=== PATIENT | female | born 1945 | race Caucasian/White ===

== ENCOUNTER 2023-09-17 12:07 | Inpatient (IN) | payer MEDICARE, MEDICAID ==
[~2023-09-17] VITALS: Ht 162.6 cm; Wt 65.8 kg
[~2023-09-17 12:07] MED LIST: ACET325T55 PO; AMLO-314 PO; BISA10SU60 RC; DIPH25CA83 IMVAC; DOCU100C41 PO; FAMO20TA8 PO; FLUO-167 PO; HALO5SYR3 IVP; IBUP-2417 PO; LAMO200T2 PO; LIDO1ADH67 TOP; LORA-269 PO; LORA2SYR IV; LOSA100T58 PO; MAGN296S89 PO; MAGN400O6 PO; MELA1TAB28 PO; NA P133E4 RC; ONDA-103 PO; OXYB-58 PO; OXYC-658 PO; OXYC10TA57 PO; POLY17PO10 PO; PREVCR VG; SACC250C PO; TIOT18CA3 INH
[2023-09-17 15:18] VITALS: BP 116/54; PULSE 66; RESP 18; TEMP 98.3; O2SAT 98
[2023-09-17 16:00] VITALS: RESP 18; O2SAT 100
[2023-09-17] MEDS ORDERED: mag hydrox/Alum hydrox/simeth 30ml oral suspension PO PRN (17:20)
[2023-09-17] MEDS ORDERED: acetaminophen 325mg tablet PO PRN (17:20)
[2023-09-17] MEDS ORDERED: HYDROmorphone inj. 0.5 MG/0.5 ML DISP.SYRIN IV PRN (17:20)
[2023-09-17] MEDS ORDERED: ondansetron/PF 4mg/2ml inj IV PRN (17:20)
[2023-09-17] MEDS ORDERED: magnesium hydroxide 30ml (MOM) UD suspension PO PRN (17:20)
[2023-09-17] MEDS ORDERED: IPRA3AMP9 INH (17:48)
[2023-09-17] MEDS ORDERED: OXYC-658 PO (17:48)
[2023-09-17] MEDS ORDERED: GABA300C PO (17:48)
[2023-09-17] MEDS ORDERED: AMLO2.5T2 PO (17:48)
[2023-09-17] MEDS ORDERED: ASPI-1468 PO (17:48)
[2023-09-17] MEDS ORDERED: MULT-1074 PO (17:48)
[2023-09-17] MEDS ORDERED: FAMO20TA8 PO (17:48)
[2023-09-17] MEDS ORDERED: NAPR-1170 PO (17:48)
[2023-09-17] MEDS ORDERED: HYDR-3964 PO (17:48)
[2023-09-17] MEDS ORDERED: SENN8.6T19 PO (17:48)
[2023-09-17] MEDS ORDERED: FLUO-1 PO (17:48)
[2023-09-17] MEDS ORDERED: LAMO200T2 PO (17:48)
[2023-09-17] MEDS ORDERED: OXYB5TAB21 PO (17:48)
[2023-09-17] MEDS ORDERED: PREVCR VG (17:48)
[2023-09-17] MEDS ORDERED: MELA3TAB39 PO (17:48)
[2023-09-17] MEDS ORDERED: ipratropium/albuterol 3ml nebule NEB PRN (17:55)
[2023-09-17 18:00] VITALS: BP 129/44; PULSE 74; RESP 18; TEMP 98.2; O2SAT 100
[2023-09-17] MEDS: ringers solution, lacted 1,000 ML IV SCH (18:05)
[2023-09-17] MEDS: vancomycin/NS 1 GM ADD-VANTAGE 250 ML X 1 DOSE IV ONE (18:30)
[2023-09-17] MEDS ORDERED: ipratropium/albuterol 3ml nebule NEB SCH (19:00)
[2023-09-17] MEDS ORDERED: albuterol 60 PUFF/8GM Inhaler (90mcg/1 puff) IH PRN (19:28)
[2023-09-17] MEDS: docusate sod 100mg capsule PO SCH (19:43)
[2023-09-17] MEDS: gabapentin 300mg capsule PO SCH (19:44)
[2023-09-17 19:50] VITALS: PULSE 73; RESP 16; O2SAT 98
[2023-09-17 19:51] LABS: BASOPHILS % (AUTO) 0.1 % (0-1); EOSINOPHILS # (AUTO) 0.1 X10'3 (0-0.9); EOSINOPHILS % (AUTO) 0.9 % (0-6); HEMATOCRIT 27.7 % (35.0-45.0); HEMOGLOBIN 9.2 g/dl (12.0-16.0); LYMPHOCYTES # (AUTO) 0.4 X10'3 (1.1-4.8); LYMPHOCYTES % (AUTO) 3.3 % (21-51); MEAN CORPUSCULAR HEMOGLOBIN 28.7 PG (27.0-31.0); MEAN CORPUSCULAR HGB CONC 33.4 g/dL (33.0-36.5); MEAN CORPUSCULAR VOLUME 86.1 FL (78-98); MEAN PLATELET VOLUME 6.7 FL (7.4-10.4); MONOCYTES # (AUTO) 0.4 X10'3 (0-0.9); MONOCYTES % (AUTO) 3.8 % (2-12); NEUTROPHILS # (AUTO) 10.8 X10'3 (1.8-7.7); NEUTROPHILS % (AUTO) 91.9 % (42-75); PLATELET COUNT 408 X10'3 (140-440); RED BLOOD COUNT 3.22 X10'6 (4.20-5.60); WHITE BLOOD COUNT 11.7 X10'3 (4.5-11.0)
[2023-09-17 20:00] VITALS: RESP 18; O2SAT 100
[2023-09-17 20:04] LABS: ALANINE AMINOTRANSFERASE 35 U/L (12-78); ALBUMIN 2.9 G/DL (3.4-5.0); ALBUMIN/GLOBULIN RATIO 0.7 (1.1-1.5); ALKALINE PHOSPHATASE 310 IU/L (46-116); ANION GAP 8 (8-16); ASPARTATE AMINO TRANSFERASE 23 U/L (10-37); BILIRUBIN,TOTAL 0.4 MG/DL (0.1-1.0); BLOOD UREA NITROGEN 13 MG/DL (7-18); BUN/CREATININE RATIO 22.4 (10.0-20.0); CALCIUM 8.6 MG/DL (8.5-10.1); CHLORIDE 91 MMOL/L (99-107); CREATININE 0.58 MG/DL (0.40-0.90); GLUCOSE 111 MG/DL (70-104); POTASSIUM 4.3 MMOL/L (3.5-5.1); SODIUM 123 MMOL/L (135-145); TOTAL CARBON DIOXIDE 24.5 MMOL/L (24-32); TOTAL PROTEIN 7.1 G/DL (6.4-8.2); eCRCL 70 ML/MIN; eGFR > 90 ML/MIN
[2023-09-17] MEDS: albuterol 60 PUFF/8GM Inhaler (90mcg/1 puff) IH SCH (23:00)
[2023-09-18] VITALS (11 sets, daily range): BP systolic 119–140; BP diastolic 50–76; PULSE 56–81; RESP 18–20; TEMP 98.1–98.4; O2SAT 94–99
[2023-09-18 05:23] LABS: BASOPHILS % (AUTO) 0.2 % (0-1); EOSINOPHILS # (AUTO) 0.2 X10'3 (0-0.9); EOSINOPHILS % (AUTO) 1.6 % (0-6); HEMATOCRIT 28.9 % (35.0-45.0); HEMOGLOBIN 9.7 g/dl (12.0-16.0); LYMPHOCYTES # (AUTO) 0.6 X10'3 (1.1-4.8); LYMPHOCYTES % (AUTO) 6.2 % (21-51); MEAN CORPUSCULAR HEMOGLOBIN 28.7 PG (27.0-31.0); MEAN CORPUSCULAR HGB CONC 33.6 g/dL (33.0-36.5); MEAN CORPUSCULAR VOLUME 85.5 FL (78-98); MEAN PLATELET VOLUME 6.7 FL (7.4-10.4); MONOCYTES # (AUTO) 0.3 X10'3 (0-0.9); NEUTROPHILS # (AUTO) 8.6 X10'3 (1.8-7.7); PLATELET COUNT 443 X10'3 (140-440); RED BLOOD COUNT 3.38 X10'6 (4.20-5.60); RED CELL DISTRIBUTION WIDTH 13.8 % (11.5-14.5); WHITE BLOOD COUNT 9.7 X10'3 (4.5-11.0)
[2023-09-18 05:37] LABS: ALANINE AMINOTRANSFERASE 35 U/L (12-78); ALBUMIN 2.9 G/DL (3.4-5.0); ALBUMIN/GLOBULIN RATIO 0.7 (1.1-1.5); ALKALINE PHOSPHATASE 318 IU/L (46-116); ANION GAP 8 (8-16); ASPARTATE AMINO TRANSFERASE 37 U/L (10-37); BILIRUBIN,TOTAL 0.6 MG/DL (0.1-1.0); BLOOD UREA NITROGEN 8 MG/DL (7-18); CHLORIDE 91 MMOL/L (99-107); GLUCOSE 105 MG/DL (70-104); MAGNESIUM 1.8 MG/DL (1.5-2.4); PHOSPHORUS 3.1 MG/DL (2.3-4.5); SODIUM 124 MMOL/L (135-145); TOTAL CARBON DIOXIDE 24.6 MMOL/L (24-32); TOTAL PROTEIN 7.3 G/DL (6.4-8.2); eCRCL 81 ML/MIN; eGFR > 90 ML/MIN
[2023-09-18] MEDS: MULTIVIT-MIN/FERROUS GLUCONATE 9 MG/15 ML LIQUID PO SCH (07:34)
[2023-09-18] MEDS: lamoTRIgine 100mg tablet PO SCH (07:34)
[2023-09-18] MEDS: FLUoxetine 20mg capsule PO SCH (07:35)
[2023-09-18] MEDS: amLODIPine 5mg tablet PO SCH (07:36)
[2023-09-18] MEDS: HYDROcodone/acetaminophen 5mg/325mg tablet PO PRN (07:45)
[2023-09-18] MEDS ORDERED: cefazolin 2gm/D5W 100mL 100 ML IV SCH (08:00)
[2023-09-18] MEDS ORDERED: CEFAZOLIN 2 GM injection IM SCH (08:00)
[2023-09-18] MEDS: vancomycin/NS 1 GM ADD-VANTAGE 250 ML IV SCH (08:49)
[2023-09-18] MEDS: morphine 2 MG/ML inj. syringe IV PRN (08:51)
[2023-09-18] MEDS: HYDROcodone/acetaminophen 10/325mg tab PO PRN (12:12)
[2023-09-18] MEDS: ringers solution, lacted 1,000 ML IV SCH (12:13)
[2023-09-18 17:25] LABS: C-REACTIVE PROTEIN 11.73 MG/DL (0.0-0.5)
[2023-09-19] VITALS (10 sets, daily range): BP systolic 104–157; BP diastolic 50–75; PULSE 76–82; RESP 12–19; TEMP 97.5–98.2; O2SAT 93–99
[2023-09-19] MEDS: ceFAZolin 1000mg inj ONE ×3 (07:27→10:23)
[2023-09-19] MEDS: VANCOMYCIN LEVEL IV ONE (07:30)
[2023-09-19] MEDS ORDERED: fentaNYL/PF 50MCG/1 ML 2ML syringe ONE (08:15)
[2023-09-19] MEDS ORDERED: midazolam 1 mg/ML 2ml injection ONE (08:15)
[2023-09-19] MEDS ORDERED: sevoflurane 250ml liquid IH ONE (08:24)
[2023-09-19 08:29] LABS: BASOPHILS % (AUTO) 0.5 % (0-1); EOSINOPHILS # (AUTO) 0.4 X10'3 (0-0.9); EOSINOPHILS % (AUTO) 5.8 % (0-6); HEMATOCRIT 29.4 % (35.0-45.0); HEMOGLOBIN 9.7 g/dl (12.0-16.0); LYMPHOCYTES # (AUTO) 1.1 X10'3 (1.1-4.8); LYMPHOCYTES % (AUTO) 17.6 % (21-51); MEAN CORPUSCULAR HEMOGLOBIN 28.2 PG (27.0-31.0); MEAN CORPUSCULAR VOLUME 85.5 FL (78-98); MEAN PLATELET VOLUME 6.7 FL (7.4-10.4); MONOCYTES # (AUTO) 0.5 X10'3 (0-0.9); MONOCYTES % (AUTO) 8.2 % (2-12); NEUTROPHILS # (AUTO) 4.4 X10'3 (1.8-7.7); NEUTROPHILS % (AUTO) 67.9 % (42-75); PLATELET COUNT 432 X10'3 (140-440); RED BLOOD COUNT 3.44 X10'6 (4.20-5.60); WHITE BLOOD COUNT 6.4 X10'3 (4.5-11.0)
[2023-09-19] MEDS ORDERED: hydrALAZINE 20mg/ml inj. IV PRN (08:35)
[2023-09-19] MEDS ORDERED: meperidine/PF 25mg/ml syringe IV PRN (08:35)
[2023-09-19] MEDS: ringers solution, lacted 1,000 ML IV SCH (08:35)
[2023-09-19] MEDS ORDERED: ondansetron/PF 4mg/2ml inj IV PRN (08:35)
[2023-09-19] MEDS ORDERED: morphine 2 MG/ML inj. syringe IV PRN (08:35)
[2023-09-19] MEDS ORDERED: morphine 4 MG/ML inj SYRINge IV PRN (08:35)
[2023-09-19] MEDS ORDERED: proCHLORperazine 10 MG/2 ml inj IV PRN (08:35)
[2023-09-19] MEDS ORDERED: HYDROmorphone/PF 0.2 MG/ML SYRINGE IV PRN ×2 (08:35)
[2023-09-19] MEDS ORDERED: labetalol 20mg/4ml (5mg/ml) syringe IV PRN (08:35)
[2023-09-19 08:36] LABS: ALBUMIN 2.6 G/DL (3.4-5.0); ANION GAP 10 (8-16); BLOOD UREA NITROGEN 7 MG/DL (7-18); BUN/CREATININE RATIO 14.6 (10.0-20.0); CALCIUM 8.7 MG/DL (8.5-10.1); CHLORIDE 95 MMOL/L (99-107); CREATININE 0.48 MG/DL (0.40-0.90); GLUCOSE 94 MG/DL (70-104); SODIUM 130 MMOL/L (135-145); TOTAL CARBON DIOXIDE 25.3 MMOL/L (24-32); eCRCL 85 ML/MIN; eGFR > 90 ML/MIN
[2023-09-19 08:39] LABS: ALANINE AMINOTRANSFERASE 29 U/L (12-78); ALBUMIN 2.6 G/DL (3.4-5.0); ALBUMIN/GLOBULIN RATIO 0.6 (1.1-1.5); ALKALINE PHOSPHATASE 256 IU/L (46-116); ANION GAP 10 (8-16); ASPARTATE AMINO TRANSFERASE 13 U/L (10-37); BILIRUBIN,TOTAL 0.3 MG/DL (0.1-1.0); BLOOD UREA NITROGEN 7 MG/DL (7-18); BUN/CREATININE RATIO 15.6 (10.0-20.0); CALCIUM 8.8 MG/DL (8.5-10.1); CHLORIDE 95 MMOL/L (99-107); CREATININE 0.45 MG/DL (0.40-0.90); GLUCOSE 95 MG/DL (70-104); MAGNESIUM 1.7 MG/DL (1.5-2.4); PHOSPHORUS 3.1 MG/DL (2.3-4.5); POTASSIUM 3.9 MMOL/L (3.5-5.1); SODIUM 130 MMOL/L (135-145); TOTAL CARBON DIOXIDE 25.2 MMOL/L (24-32); TOTAL PROTEIN 6.8 G/DL (6.4-8.2); VANCOMYCIN,TROUGH 9.7 ug/mL (10.0-20.0); eCRCL 90 ML/MIN; eGFR > 90 ML/MIN
[2023-09-19] MEDS: HYDROmorphone inj. 0.5 MG/0.5 ML DISP.SYRIN IV PRN (09:01)
[2023-09-19 09:05] LABS: D-DIMER 7.22 MG/L FEU (0-0.50)
[2023-09-19] MEDS ORDERED: rocuronium 10mg/ml inj IV ONE (09:07)
[2023-09-19] MEDS ORDERED: ondansetron/PF 4mg/2ml inj ONE (09:07)
[2023-09-19] MEDS ORDERED: LIDOcaine 2% (20mg/ml) 5ml vial ONE (09:07)
[2023-09-19] MEDS ORDERED: ePHEDrine 50MG/ML INJ. ONE (09:07)
[2023-09-19] MEDS ORDERED: dexamethasone sod phosphate 4mg/ml inj. ONE (09:07)
[2023-09-19] MEDS ORDERED: propofol inj 20 ML IV ONE (09:07)
[2023-09-19] MEDS ORDERED: 0.9 % SODIUM CHLORIDE 10 ML VIAL ONE (09:07)
[2023-09-19] MEDS: tobramycin sulfate 1.2gm vial ONE (09:29)
[2023-09-19] MEDS: vancomycin 1,000mg inj ONE (09:30)
[2023-09-19] MEDS: ceFAZolin 1000mg inj IR ONE (09:47)
[2023-09-19] MEDS ORDERED: neostigmine methylsulfate 1 MG/ML 10ml vial ONE (10:53)
[2023-09-19] MEDS ORDERED: glycopyrrolate 0.2mg/ml inj ONE (10:53)
[2023-09-19] MEDS ORDERED: morphine 10mg/ml inj. ONE (10:53)
[2023-09-19] MEDS: acetaminophen 1,000mg/100ml IV 100 ML IV ONE (11:18)
[2023-09-19] MEDS: VANCOMYCIN 1,500MG in normal saline IV soln 300 ML IV SCH (12:27)
[2023-09-19] MEDS: HYDROmorphone inj. 0.5 MG/0.5 ML DISP.SYRIN IV ONE (17:36)
[2023-09-20] VITALS (9 sets, daily range): BP systolic 124–149; BP diastolic 47–73; PULSE 64–73; RESP 13–18; TEMP 97.3–98.3; O2SAT 93–99
[2023-09-20] MEDS: HYDROmorphone 1 mg/ml syringe IV PRN (01:22)
[2023-09-20 06:06] LABS: BASOPHILS % (AUTO) 0.4 % (0-1); EOSINOPHILS # (AUTO) 0.1 X10'3 (0-0.9); EOSINOPHILS % (AUTO) 1.2 % (0-6); HEMATOCRIT 24.2 % (35.0-45.0); HEMOGLOBIN 8.2 g/dl (12.0-16.0); LYMPHOCYTES # (AUTO) 1.2 X10'3 (1.1-4.8); LYMPHOCYTES % (AUTO) 12.5 % (21-51); MEAN CORPUSCULAR HEMOGLOBIN 28.8 PG (27.0-31.0); MEAN CORPUSCULAR VOLUME 84.8 FL (78-98); MEAN PLATELET VOLUME 6.5 FL (7.4-10.4); MONOCYTES # (AUTO) 0.9 X10'3 (0-0.9); MONOCYTES % (AUTO) 8.7 % (2-12); NEUTROPHILS # (AUTO) 7.7 X10'3 (1.8-7.7); NEUTROPHILS % (AUTO) 77.2 % (42-75); PLATELET COUNT 414 X10'3 (140-440); RED BLOOD COUNT 2.86 X10'6 (4.20-5.60); WHITE BLOOD COUNT 9.9 X10'3 (4.5-11.0)
[2023-09-20 06:33] LABS: ALANINE AMINOTRANSFERASE 27 U/L (12-78); ALBUMIN 2.6 G/DL (3.4-5.0); ALBUMIN/GLOBULIN RATIO 0.7 (1.1-1.5); ALKALINE PHOSPHATASE 210 IU/L (46-116); ANION GAP 11 (8-16); ASPARTATE AMINO TRANSFERASE 12 U/L (10-37); BILIRUBIN,TOTAL 0.2 MG/DL (0.1-1.0); BLOOD UREA NITROGEN 10 MG/DL (7-18); CALCIUM 8.8 MG/DL (8.5-10.1); CHLORIDE 95 MMOL/L (99-107); GLUCOSE 129 MG/DL (70-104); MAGNESIUM 1.6 MG/DL (1.5-2.4); PHOSPHORUS 3.6 MG/DL (2.3-4.5); POTASSIUM 3.9 MMOL/L (3.5-5.1); SODIUM 129 MMOL/L (135-145); TOTAL CARBON DIOXIDE 23.4 MMOL/L (24-32); TOTAL PROTEIN 6.4 G/DL (6.4-8.2); eCRCL 81 ML/MIN; eGFR > 90 ML/MIN
[2023-09-20] MEDS: HYDROcodone/acetaminophen 10/325mg tab PO PRN (10:07)
[2023-09-20] MEDS: LORazepam 2 mg/ml vial IV ONE (10:54)
[2023-09-20] MEDS ORDERED: baclofen 10mg tablet PO PRN (11:25)
[2023-09-20] MEDS: baclofen 10mg tablet PO PRN (14:47)
[2023-09-20] MEDS ORDERED: albuterol 2.5 MG/3 ML nebule NEB PRN (18:45)
[2023-09-20] MEDS: enoxaparin 40mg/0.4ml syringe SQ SCH (21:28)
[2023-09-20] MEDS: VANCOMYCIN LEVEL IV ONE (21:30)
[2023-09-21] VITALS (7 sets, daily range): BP systolic 134–159; BP diastolic 58–68; PULSE 58–90; RESP 14–18; TEMP 96.9–98; O2SAT 94–98
[2023-09-21 06:08] LABS: BASOPHILS # (AUTO) 0.1 X10'3 (0-0.2); EOSINOPHILS # (AUTO) 0.6 X10'3 (0-0.9); EOSINOPHILS % (AUTO) 6.6 % (0-6); HEMATOCRIT 23.4 % (35.0-45.0); LYMPHOCYTES % (AUTO) 21.5 % (21-51); MEAN CORPUSCULAR HEMOGLOBIN 28.9 PG (27.0-31.0); MEAN CORPUSCULAR HGB CONC 34.1 g/dL (33.0-36.5); MEAN CORPUSCULAR VOLUME 84.7 FL (78-98); MEAN PLATELET VOLUME 6.5 FL (7.4-10.4); MONOCYTES # (AUTO) 1.1 X10'3 (0-0.9); MONOCYTES % (AUTO) 11.5 % (2-12); NEUTROPHILS # (AUTO) 5.7 X10'3 (1.8-7.7); NEUTROPHILS % (AUTO) 59.4 % (42-75); PLATELET COUNT 388 X10'3 (140-440); RED BLOOD COUNT 2.77 X10'6 (4.20-5.60); RED CELL DISTRIBUTION WIDTH 14.3 % (11.5-14.5); WHITE BLOOD COUNT 9.5 X10'3 (4.5-11.0)
[2023-09-21 06:23] LABS: ALANINE AMINOTRANSFERASE 27 U/L (12-78); ALBUMIN 2.5 G/DL (3.4-5.0); ALBUMIN/GLOBULIN RATIO 0.7 (1.1-1.5); ALKALINE PHOSPHATASE 184 IU/L (46-116); ANION GAP 8 (8-16); ASPARTATE AMINO TRANSFERASE 14 U/L (10-37); BILIRUBIN,TOTAL 0.2 MG/DL (0.1-1.0); BLOOD UREA NITROGEN 9 MG/DL (7-18); BUN/CREATININE RATIO 18.8 (10.0-20.0); CALCIUM 8.9 MG/DL (8.5-10.1); CHLORIDE 96 MMOL/L (99-107); CREATININE 0.48 MG/DL (0.40-0.90); GLUCOSE 88 MG/DL (70-104); MAGNESIUM 1.4 MG/DL (1.5-2.4); PHOSPHORUS 3.9 MG/DL (2.3-4.5); POTASSIUM 3.7 MMOL/L (3.5-5.1); SODIUM 131 MMOL/L (135-145); TOTAL CARBON DIOXIDE 27.3 MMOL/L (24-32); TOTAL PROTEIN 6.1 G/DL (6.4-8.2); eCRCL 85 ML/MIN; eGFR > 90 ML/MIN
[2023-09-21] MEDS ORDERED: ketorolac tromethamine 15mg/ml inj. IM ONE (11:05)
[2023-09-21] MEDS: baclofen 10mg tablet PO SCH (11:06)
[2023-09-21] MEDS ORDERED: potassium Cl 40MEQ/1/2NS 520ml 520 ML IV PRN (11:10)
[2023-09-21] MEDS ORDERED: potassium Cl 20 mEq SR tablet PO PRN (11:10)
[2023-09-21] MEDS: ketorolac tromethamine 15mg/ml inj. IV ONE (11:20)
[2023-09-21] MEDS: magnesium Cl slow-release 64mg tablet PO PRN (12:50)
[2023-09-21] MEDS: K and/or MAG REPLACEMENT MC SCH (18:45)
[2023-09-22] VITALS (7 sets, daily range): BP systolic 132–176; BP diastolic 48–79; PULSE 64–75; RESP 13–18; TEMP 97.1–97.8; O2SAT 93–98
[2023-09-22] MEDS: CefTRIAXone 2gm/D5W 50ml BAG 50 ML IV SCH (08:07)
[2023-09-22 08:18] LABS: BASOPHILS # (AUTO) 0.1 X10'3 (0-0.2); BASOPHILS % (AUTO) 0.6 % (0-1); EOSINOPHILS # (AUTO) 0.6 X10'3 (0-0.9); EOSINOPHILS % (AUTO) 5.3 % (0-6); HEMATOCRIT 27.2 % (35.0-45.0); HEMOGLOBIN 9.2 g/dl (12.0-16.0); LYMPHOCYTES # (AUTO) 1.8 X10'3 (1.1-4.8); LYMPHOCYTES % (AUTO) 16.2 % (21-51); MEAN CORPUSCULAR HEMOGLOBIN 28.6 PG (27.0-31.0); MEAN CORPUSCULAR HGB CONC 33.9 g/dL (33.0-36.5); MEAN CORPUSCULAR VOLUME 84.5 FL (78-98); MEAN PLATELET VOLUME 6.9 FL (7.4-10.4); MONOCYTES # (AUTO) 1.1 X10'3 (0-0.9); MONOCYTES % (AUTO) 9.2 % (2-12); NEUTROPHILS # (AUTO) 7.9 X10'3 (1.8-7.7); NEUTROPHILS % (AUTO) 68.7 % (42-75); PLATELET COUNT 480 X10'3 (140-440); RED BLOOD COUNT 3.21 X10'6 (4.20-5.60); RED CELL DISTRIBUTION WIDTH 14.3 % (11.5-14.5); WHITE BLOOD COUNT 11.4 X10'3 (4.5-11.0)
[2023-09-22 08:23] LABS: ALANINE AMINOTRANSFERASE 27 U/L (12-78); ALBUMIN 2.7 G/DL (3.4-5.0); ALBUMIN/GLOBULIN RATIO 0.7 (1.1-1.5); ALKALINE PHOSPHATASE 196 IU/L (46-116); ANION GAP 9 (8-16); ASPARTATE AMINO TRANSFERASE 16 U/L (10-37); BILIRUBIN,TOTAL 0.3 MG/DL (0.1-1.0); BLOOD UREA NITROGEN 7 MG/DL (7-18); BUN/CREATININE RATIO 14.3 (10.0-20.0); CALCIUM 9.2 MG/DL (8.5-10.1); CHLORIDE 92 MMOL/L (99-107); CREATININE 0.49 MG/DL (0.40-0.90); GLUCOSE 90 MG/DL (70-104); MAGNESIUM 1.3 MG/DL (1.5-2.4); PHOSPHORUS 4.5 MG/DL (2.3-4.5); POTASSIUM 3.6 MMOL/L (3.5-5.1); SODIUM 126 MMOL/L (135-145); TOTAL CARBON DIOXIDE 25.4 MMOL/L (24-32); TOTAL PROTEIN 6.7 G/DL (6.4-8.2); eCRCL 83 ML/MIN; eGFR > 90 ML/MIN
[2023-09-22] MEDS ORDERED: magnesium sulf-water 4G/100mL 100 ML IV PRN (08:50)
[2023-09-22] MEDS ORDERED: magnesium sulf-water 2g/50mL 50 ML IV PRN (08:50)
[2023-09-22] MEDS ORDERED: magnesium Cl slow-release 64mg tablet PO PRN (08:50)
[2023-09-22 09:11] LABS: TOTAL CELLS COUNTED 100
[2023-09-22 09:12] LABS: BURR CELLS FEW; POLYCHROMASIA FEW
[2023-09-22 09:13] LABS: PLATELET ESTIMATE INCREASED
[2023-09-22] MEDS: magnesium sulf-water 4G/100mL 100 ML IV PRN (09:44)
[2023-09-22] MEDS: LidoCAINE 2% Topical Jelly 11mL syringe (UROJET) TOP ONE (11:39)
[2023-09-22 12:32] LABS: BILIRUBIN,URINE NEGATIVE (Neg); CLARITY,URINE CLEAR (Clear); COLOR,URINE YELLOW (Yellow); GLUCOSE, URINE NEGATIVE (Neg); KETONES,URINE NEGATIVE (Neg); LEUKOCYTE ESTERASE ,URINE NEGATIVE (Neg); NITRITES, URINE NEGATIVE (Neg); OCCULT BLOOD,URINE NEGATIVE (Neg); PH,URINE 6.5 (4.8-8.0); PROTEIN,URINE NEGATIVE (Neg); UROBILINOGEN,URINE 0.2 E.U/dL (0.2-1.0)
[2023-09-22 12:39] LABS: UA COLLECTION TYPE NON-SPECIFIED
[2023-09-23 06:00] VITALS: BP 189/73; PULSE 67; RESP 14; TEMP 96.3; O2SAT 95
[2023-09-23] MEDS: amLODIPine 5mg tablet PO SCH (07:59)
[2023-09-23 10:00] VITALS: BP 150/68; PULSE 74; RESP 18; TEMP 98; O2SAT 96
[2023-09-23 11:36] VITALS: PULSE 68; RESP 16; O2SAT 94
[2023-09-23 12:08] LABS: BASOPHILS # (AUTO) 0.1 X10'3 (0-0.2); BASOPHILS % (AUTO) 0.8 % (0-1); EOSINOPHILS # (AUTO) 0.5 X10'3 (0-0.9); EOSINOPHILS % (AUTO) 5.2 % (0-6); HEMATOCRIT 24.6 % (35.0-45.0); HEMOGLOBIN 8.3 g/dl (12.0-16.0); LYMPHOCYTES # (AUTO) 1.5 X10'3 (1.1-4.8); LYMPHOCYTES % (AUTO) 15.4 % (21-51); MEAN CORPUSCULAR HEMOGLOBIN 28.7 PG (27.0-31.0); MEAN CORPUSCULAR HGB CONC 33.7 g/dL (33.0-36.5); MEAN CORPUSCULAR VOLUME 85.1 FL (78-98); MEAN PLATELET VOLUME 6.7 FL (7.4-10.4); NEUTROPHILS # (AUTO) 6.7 X10'3 (1.8-7.7); NEUTROPHILS % (AUTO) 68.6 % (42-75); PLATELET COUNT 394 X10'3 (140-440); RED BLOOD COUNT 2.89 X10'6 (4.20-5.60); RED CELL DISTRIBUTION WIDTH 14.3 % (11.5-14.5); WHITE BLOOD COUNT 9.8 X10'3 (4.5-11.0)
[2023-09-23] MEDS: ketorolac tromethamine 15mg/ml inj. IV STA (12:25)
[2023-09-23 12:35] LABS: ALBUMIN 2.4 G/DL (3.4-5.0); ANION GAP 8 (8-16); BLOOD UREA NITROGEN 8 MG/DL (7-18); BUN/CREATININE RATIO 16.7 (10.0-20.0); CALCIUM 8.7 MG/DL (8.5-10.1); CHLORIDE 94 MMOL/L (99-107); CREATININE 0.48 MG/DL (0.40-0.90); GLUCOSE 98 MG/DL (70-104); MAGNESIUM 1.6 MG/DL (1.5-2.4); POTASSIUM 3.1 MMOL/L (3.5-5.1); PRO BRAIN NATRIURETIC PEPTIDE 409 PG/ML (0-450); SODIUM 129 MMOL/L (135-145); TOTAL CARBON DIOXIDE 27.5 MMOL/L (24-32); eCRCL 85 ML/MIN; eGFR > 90 ML/MIN
[2023-09-23 12:36] LABS: PLATELET ESTIMATE NORMAL; TOTAL CELLS COUNTED 100
[2023-09-23 12:54] LABS: THYROID STIMULATING HORMONE 1.21 ulU/ml (0.34-4.50)
[2023-09-23] MEDS: potassium Cl 20 mEq SR tablet PO PRN (13:07)
[2023-09-23] MEDS: LORazepam 1 MG tablet PO PRN (13:55)
[2023-09-23 18:00] VITALS: BP 134/47; PULSE 68; RESP 18; TEMP 98.5; O2SAT 96
[2023-09-23 19:30] VITALS: PULSE 66; RESP 18; O2SAT 94
[2023-09-23 22:00] VITALS: BP 160/46; PULSE 63; RESP 18; TEMP 98; O2SAT 94
[2023-09-24] MEDS: magnesium sulf-water 2g/50mL 50 ML IV PRN (07:08)
[2023-09-24 11:30] VITALS: PULSE 67; RESP 16; O2SAT 96
[2023-09-24 12:00] VITALS: BP 128/61; PULSE 67; RESP 16; TEMP 97.3; O2SAT 96
[2023-09-24 13:02] LABS: BASOPHILS # (AUTO) 0.1 X10'3 (0-0.2); BASOPHILS % (AUTO) 0.6 % (0-1); EOSINOPHILS # (AUTO) 0.6 X10'3 (0-0.9); EOSINOPHILS % (AUTO) 4.8 % (0-6); HEMATOCRIT 26.5 % (35.0-45.0); HEMOGLOBIN 8.8 g/dl (12.0-16.0); LYMPHOCYTES # (AUTO) 1.8 X10'3 (1.1-4.8); MEAN CORPUSCULAR HGB CONC 33.1 g/dL (33.0-36.5); MEAN CORPUSCULAR VOLUME 84.5 FL (78-98); MONOCYTES # (AUTO) 0.9 X10'3 (0-0.9); MONOCYTES % (AUTO) 7.7 % (2-12); NEUTROPHILS # (AUTO) 8.1 X10'3 (1.8-7.7); NEUTROPHILS % (AUTO) 70.9 % (42-75); PLATELET COUNT 413 X10'3 (140-440); RED BLOOD COUNT 3.13 X10'6 (4.20-5.60); RED CELL DISTRIBUTION WIDTH 14.6 % (11.5-14.5); WHITE BLOOD COUNT 11.5 X10'3 (4.5-11.0)
[2023-09-24 13:10] LABS: ALBUMIN 2.5 G/DL (3.4-5.0); ANION GAP 5 (8-16); BLOOD UREA NITROGEN 6 MG/DL (7-18); BUN/CREATININE RATIO 15.4 (10.0-20.0); CALCIUM 8.7 MG/DL (8.5-10.1); CHLORIDE 92 MMOL/L (99-107); CREATININE 0.39 MG/DL (0.40-0.90); GLUCOSE 104 MG/DL (70-104); POTASSIUM 3.3 MMOL/L (3.5-5.1); SODIUM 125 MMOL/L (135-145); TOTAL CARBON DIOXIDE 27.8 MMOL/L (24-32); eCRCL 0 ML/MIN; eGFR > 90 ML/MIN
[2023-09-24 13:40] LABS: MAGNESIUM 3.1 MG/DL (1.5-2.4)
[2023-09-24 18:00] VITALS: BP 113/52; PULSE 62; RESP 16; TEMP 97.2; O2SAT 95
[2023-09-24 20:20] VITALS: PULSE 63; RESP 16; O2SAT 96
[2023-09-24 22:00] VITALS: BP 115/53; PULSE 61; RESP 15; TEMP 97.5; O2SAT 94
[2023-09-24] MEDS: normal saline 1000ml 1,000 ML IV SCH (22:44)
[2023-09-25 04:11] LABS: BASOPHILS # (AUTO) 0.1 X10'3 (0-0.2); BASOPHILS % (AUTO) 0.9 % (0-1); EOSINOPHILS # (AUTO) 0.5 X10'3 (0-0.9); EOSINOPHILS % (AUTO) 5.9 % (0-6); HEMATOCRIT 24.6 % (35.0-45.0); HEMOGLOBIN 8.4 g/dl (12.0-16.0); LYMPHOCYTES # (AUTO) 1.5 X10'3 (1.1-4.8); LYMPHOCYTES % (AUTO) 16.9 % (21-51); MEAN CORPUSCULAR HEMOGLOBIN 28.4 PG (27.0-31.0); MEAN CORPUSCULAR VOLUME 83.5 FL (78-98); MEAN PLATELET VOLUME 6.3 FL (7.4-10.4); MONOCYTES # (AUTO) 0.7 X10'3 (0-0.9); MONOCYTES % (AUTO) 8.1 % (2-12); NEUTROPHILS # (AUTO) 5.9 X10'3 (1.8-7.7); NEUTROPHILS % (AUTO) 68.2 % (42-75); PLATELET COUNT 353 X10'3 (140-440); RED BLOOD COUNT 2.94 X10'6 (4.20-5.60); RED CELL DISTRIBUTION WIDTH 14.6 % (11.5-14.5); WHITE BLOOD COUNT 8.6 X10'3 (4.5-11.0)
[2023-09-25 04:36] LABS: ALANINE AMINOTRANSFERASE 34 U/L (12-78); ALBUMIN 2.5 G/DL (3.4-5.0); ALBUMIN/GLOBULIN RATIO 0.7 (1.1-1.5); ALKALINE PHOSPHATASE 173 IU/L (46-116); ANION GAP 10 (8-16); ASPARTATE AMINO TRANSFERASE 21 U/L (10-37); BILIRUBIN,TOTAL 0.3 MG/DL (0.1-1.0); BLOOD UREA NITROGEN 8 MG/DL (7-18); BUN/CREATININE RATIO 15.7 (10.0-20.0); CALCIUM 8.8 MG/DL (8.5-10.1); CHLORIDE 94 MMOL/L (99-107); CREATININE 0.51 MG/DL (0.40-0.90); GLUCOSE 103 MG/DL (70-104); MAGNESIUM 1.9 MG/DL (1.5-2.4); POTASSIUM 3.3 MMOL/L (3.5-5.1); SODIUM 129 MMOL/L (135-145); TOTAL CARBON DIOXIDE 25.2 MMOL/L (24-32); TOTAL PROTEIN 6.3 G/DL (6.4-8.2); eCRCL 0 ML/MIN; eGFR > 90 ML/MIN
[2023-09-25 06:59] VITALS: BP 127/58; PULSE 66; RESP 19; TEMP 97.8; O2SAT 98
[2023-09-25 08:00] VITALS: RESP 19; O2SAT 98
[2023-09-25 11:59] VITALS: BP 146/68; PULSE 67; RESP 22; TEMP 98.4; O2SAT 97
[2023-09-25 16:23] VITALS: PULSE 73; RESP 17; O2SAT 96
[2023-09-25 19:10] VITALS: RESP 16; O2SAT 94
[2023-09-25] MEDS: VANCOMYCIN LEVEL IV ONE (21:25)
[2023-09-25 22:00] VITALS: BP 114/69; PULSE 70; RESP 16; TEMP 97.5; O2SAT 96
[2023-09-26] VITALS (7 sets, daily range): BP systolic 143–155; BP diastolic 55–83; PULSE 66–75; RESP 16–20; TEMP 97.3–98.6; O2SAT 97–99
[2023-09-26 06:33] LABS: BASOPHILS # (AUTO) 0.1 X10'3 (0-0.2); BASOPHILS % (AUTO) 1.2 % (0-1); EOSINOPHILS # (AUTO) 0.4 X10'3 (0-0.9); EOSINOPHILS % (AUTO) 4.3 % (0-6); HEMATOCRIT 26.2 % (35.0-45.0); HEMOGLOBIN 8.9 g/dl (12.0-16.0); LYMPHOCYTES # (AUTO) 1.7 X10'3 (1.1-4.8); MEAN CORPUSCULAR HEMOGLOBIN 28.5 PG (27.0-31.0); MEAN CORPUSCULAR HGB CONC 34.1 g/dL (33.0-36.5); MEAN CORPUSCULAR VOLUME 83.6 FL (78-98); MEAN PLATELET VOLUME 6.2 FL (7.4-10.4); MONOCYTES # (AUTO) 0.8 X10'3 (0-0.9); MONOCYTES % (AUTO) 9.5 % (2-12); NEUTROPHILS # (AUTO) 5.4 X10'3 (1.8-7.7); PLATELET COUNT 343 X10'3 (140-440); RED BLOOD COUNT 3.13 X10'6 (4.20-5.60); RED CELL DISTRIBUTION WIDTH 14.5 % (11.5-14.5); WHITE BLOOD COUNT 8.3 X10'3 (4.5-11.0)
[2023-09-26 06:36] LABS: ALANINE AMINOTRANSFERASE 35 U/L (12-78); ALBUMIN 2.6 G/DL (3.4-5.0); ALBUMIN/GLOBULIN RATIO 0.7 (1.1-1.5); ALKALINE PHOSPHATASE 173 IU/L (46-116); ANION GAP 11 (8-16); ASPARTATE AMINO TRANSFERASE 26 U/L (10-37); BILIRUBIN,TOTAL 0.4 MG/DL (0.1-1.0); BLOOD UREA NITROGEN 5 MG/DL (7-18); BUN/CREATININE RATIO 10.4 (10.0-20.0); CALCIUM 8.8 MG/DL (8.5-10.1); CHLORIDE 94 MMOL/L (99-107); CREATININE 0.48 MG/DL (0.40-0.90); GLUCOSE 97 MG/DL (70-104); MAGNESIUM 1.4 MG/DL (1.5-2.4); SODIUM 129 MMOL/L (135-145); TOTAL CARBON DIOXIDE 24.2 MMOL/L (24-32); TOTAL PROTEIN 6.5 G/DL (6.4-8.2); eCRCL 85 ML/MIN; eGFR > 90 ML/MIN
[2023-09-26] MEDS ORDERED: magnesium sulf-water 2g/50mL 50 ML IV PRN (07:30)
[2023-09-26] MEDS ORDERED: potassium Cl 20 mEq SR tablet PO PRN (07:30)
[2023-09-26] MEDS ORDERED: potassium Cl 40MEQ/1/2NS 520ml 520 ML IV PRN (07:30)
[2023-09-26] MEDS ORDERED: magnesium sulf-water 4G/100mL 100 ML IV PRN (07:30)
[2023-09-26] MEDS: K and/or MAG REPLACEMENT MC SCH (08:00)
[2023-09-26] MEDS: potassium Cl 20 mEq SR tablet PO PRN (08:16)
[2023-09-26] MEDS: magnesium Cl slow-release 64mg tablet PO PRN (08:16)
[2023-09-27] VITALS (10 sets, daily range): BP systolic 110–161; BP diastolic 48–55; PULSE 60–83; RESP 15–18; TEMP 97.3–98.3; O2SAT 93–99
[2023-09-27 06:29] LABS: BASOPHILS # (AUTO) 0.1 X10'3 (0-0.2); BASOPHILS % (AUTO) 1.2 % (0-1); EOSINOPHILS # (AUTO) 0.3 X10'3 (0-0.9); EOSINOPHILS % (AUTO) 3.3 % (0-6); HEMATOCRIT 23.8 % (35.0-45.0); HEMOGLOBIN 7.9 g/dl (12.0-16.0); LYMPHOCYTES # (AUTO) 1.7 X10'3 (1.1-4.8); LYMPHOCYTES % (AUTO) 18.9 % (21-51); MEAN CORPUSCULAR HEMOGLOBIN 28.4 PG (27.0-31.0); MEAN CORPUSCULAR HGB CONC 33.4 g/dL (33.0-36.5); MEAN CORPUSCULAR VOLUME 85.1 FL (78-98); MEAN PLATELET VOLUME 6.6 FL (7.4-10.4); MONOCYTES # (AUTO) 0.9 X10'3 (0-0.9); NEUTROPHILS % (AUTO) 66.6 % (42-75); PLATELET COUNT 286 X10'3 (140-440); RED BLOOD COUNT 2.79 X10'6 (4.20-5.60); RED CELL DISTRIBUTION WIDTH 14.6 % (11.5-14.5); WHITE BLOOD COUNT 9.1 X10'3 (4.5-11.0)
[2023-09-27 06:54] LABS: ALANINE AMINOTRANSFERASE 32 U/L (12-78); ALBUMIN 2.4 G/DL (3.4-5.0); ALBUMIN/GLOBULIN RATIO 0.7 (1.1-1.5); ALKALINE PHOSPHATASE 161 IU/L (46-116); ANION GAP 8 (8-16); ASPARTATE AMINO TRANSFERASE 18 U/L (10-37); BILIRUBIN,TOTAL 0.3 MG/DL (0.1-1.0); BLOOD UREA NITROGEN 7 MG/DL (7-18); BUN/CREATININE RATIO 11.9 (10.0-20.0); CHLORIDE 99 MMOL/L (99-107); CREATININE 0.59 MG/DL (0.40-0.90); GLUCOSE 94 MG/DL (70-104); MAGNESIUM 1.5 MG/DL (1.5-2.4); POTASSIUM 4.4 MMOL/L (3.5-5.1); SODIUM 130 MMOL/L (135-145); TOTAL CARBON DIOXIDE 23.3 MMOL/L (24-32); eCRCL 69 ML/MIN; eGFR > 90 ML/MIN
[2023-09-27] MEDS: iron sucrose complex injection 500 MG in normal saline 250ml IV soln 250 ML IV ONE (14:56)
[2023-09-28 06:00] VITALS: BP 151/63; PULSE 72; RESP 16; TEMP 98.1; O2SAT 95
[2023-09-28 08:00] VITALS: RESP 16; O2SAT 95
[2023-09-28 09:55] VITALS: PULSE 66; RESP 18; O2SAT 96
[2023-09-28 10:00] VITALS: BP 163/74; PULSE 81; RESP 18; TEMP 98.1; O2SAT 96
== END 2023-09-28 14:32 | disposition short-term general hospital (02) | DRG 467 ==
LOC: UNDOADMIN 14:37 → ORTHO 4S 14:37
PROVIDERS: ADMIT Internal Medicine; ATTEND Internal Medicine
PROC: 0SPS0JZ Removal of Synthetic Substitute from Left Hip Joint, Femoral Surface, Open Approach (ICD-10-PCS; 2023-09-19)
PROC: 3E0U029 Introduction of Other Anti-infective into Joints, Open Approach (ICD-10-PCS; 2023-09-19)
PROC: 0SRS0JZ Replacement of Left Hip Joint, Femoral Surface with Synthetic Substitute, Open Approach (ICD-10-PCS; principal; 2023-09-19 08:24)
PROC: 02HV33Z Insertion of Infusion Device into Superior Vena Cava, Percutaneous Approach (ICD-10-PCS; 2023-09-23)
PROC: B548ZZA Ultrasonography of Superior Vena Cava, Guidance (ICD-10-PCS; 2023-09-23)
DX: T84.52XA Infection and inflammatory reaction due to internal left hip prosthesis, initial encounter (principal); D62 Acute posthemorrhagic anemia; M00.9 Pyogenic arthritis, unspecified; L02.416 Cutaneous abscess of left lower limb; E87.1 Hypo-osmolality and hyponatremia; F03.93 Unspecified dementia, unspecified severity, with mood disturbance; M16.12 Unilateral primary osteoarthritis, left hip; F31.9 Bipolar disorder, unspecified; G89.29 Other chronic pain; I10 Essential (primary) hypertension; W19.XXXA Unspecified fall, initial encounter; Y83.1 Surgical operation with implant of artificial internal device as the cause of abnormal reaction of the patient, or of later complication, without mention of misadventure at the time of the procedure; F41.9 Anxiety disorder, unspecified; Y92.89 Other specified places as the place of occurrence of the external cause
CPT/HCPCS: 36415; 36569; 70450; 73501; 73700; 76942; 80048; 80053; 80202; 81003; 83735; 83880; 84100; 84132; 84443; 85007; 85025; 85027; 85379; 85651; 86140; 87081; 87811; 93005; 94640; 94760; 97110; 97116; 97161; 97530; 97535; A4215; A4615; A4618; A4649; A6154; A6196; A6213; A6222; A6253; A6258; A6260; A6402; A6449; A7000; C1713; C1751; C1758; C1776; G0378; J0131; J0690; J0696; J1100; J1170; J1650; J1756; J1885; J2060; J2250; J2270; J2274; J2405; J2704; J2710; J3010; J3260; J3370; J3475; J3490; J7030; J7040; J7050; J7120